=== PATIENT | male | born 1955 | race Caucasian/White ===

== ENCOUNTER → 2017-07-22 | Outpatient (CLI) | payer SELFPAY | LOC: COL.RAD 07:34 | DX: M51.36 Other intervertebral disc degeneration, lumbar region (principal); M41.86 Other forms of scoliosis, lumbar region; I71.4 Abdominal aortic aneurysm, without rupture ==

== ENCOUNTER 2018-02-07 13:09 | Inpatient (IN) | payer OTHER ==
[~2018-02-07] VITALS: Ht 177.8 cm; Wt 84.1 kg
[2018-02-07] MEDS ORDERED: PREDNISONE1 MG (13:14)
[2018-02-07] MEDS ORDERED: ANTIBIOTIC (13:14)
[2018-02-07 13:46] LABS: HEMATOCRIT 39.5 % (42.0-52.0); HEMOGLOBIN 13.4 g/dl (13.5-18.0); MEAN CELL VOLUME 101 fl (80.0-100.0); MEAN CORPUSCULAR HEMOGLOBIN 34 pg (27.0-31.0); MEAN CORPUSCULAR HGB CONC 34 g/dl (33.0-37.0); MEAN PLATELET VOLUME 8.2 fl (7.4-10.4); PLATELET COUNT 323 K/mm3 (130-400); RED BLOOD COUNT 3.92 M/mm3 (4.20-5.60); REDCELL DISTRIBUTION WIDTH-CV 12.9 % (11.5-14.5)
[2018-02-07 13:54] LABS: ALBUMIN 3.5 gm/dL (3.5-5.0); BILIRUBIN,TOTAL 0.3 mg/dL (0.0-1.0); CALCIUM 8.3 mg/dL (8.4-10.2); CREATININE, serum 0.71 mg/dL (0.66-1.25); POTASSIUM 3.3 mmol/L (3.4-5.0); TOTAL PROTEIN 6.7 gm/dL (6.4-8.2)
[2018-02-07 14:01] LABS: BAND 4 % (0-10); EOSINOPHIL 2 % (0-4); LYMPHOCYTE 15 % (20.0-51.0); NEUTROPHILS 77 % (42.0-75.2); PLATELET ESTIMATE NORMAL (NORMAL)
[2018-02-07 16:31] LABS: PROTHROMBIN TIME 11.1 SECONDS (9.7-12.8)
[2018-02-07] MEDS ORDERED: BACTRIM DS 8001 TAB PO (17:34)
[2018-02-07 20:46] VITALS: BP 106/59; PULSE 82; TEMP 98.3
[2018-02-07 21:11] VITALS: BP 106/59; PULSE 82; TEMP 98.3
[2018-02-08] VITALS (9 sets, daily range): BP systolic 90–129; BP diastolic 56–88; PULSE 65–93; TEMP 97.5–98.7
[2018-02-08 06:59] LABS: HEMATOCRIT 37.8 % (42.0-52.0); HEMOGLOBIN 12.9 g/dl (13.5-18.0); MEAN CELL VOLUME 101 fl (80.0-100.0); MEAN CORPUSCULAR HEMOGLOBIN 34 pg (27.0-31.0); MEAN CORPUSCULAR HGB CONC 34 g/dl (33.0-37.0); MEAN PLATELET VOLUME 8.3 fl (7.4-10.4); PLATELET COUNT 321 K/mm3 (130-400); RED BLOOD COUNT 3.76 M/mm3 (4.20-5.60)
[2018-02-08 07:06] LABS: CALCIUM 8.3 mg/dL (8.4-10.2); CREATININE, serum 0.63 mg/dL (0.66-1.25); POTASSIUM 4.1 mmol/L (3.4-5.0)
[2018-02-09 01:50] VITALS: BP 121/76; PULSE 92; TEMP 99
[2018-02-09 05:12] VITALS: BP 118/74; PULSE 93; TEMP 99
[2018-02-09 06:36] LABS: MEAN CELL VOLUME 99 fl (80.0-100.0); MEAN CORPUSCULAR HEMOGLOBIN 34 pg (27.0-31.0); MEAN CORPUSCULAR HGB CONC 35 g/dl (33.0-37.0); MEAN PLATELET VOLUME 8.6 fl (7.4-10.4); PLATELET COUNT 342 K/mm3 (130-400); RED BLOOD COUNT 3.52 M/mm3 (4.20-5.60); REDCELL DISTRIBUTION WIDTH-CV 12.5 % (11.5-14.5)
[2018-02-09 06:47] LABS: HEMATOCRIT 34.8 % (42.0-52.0)
[2018-02-09 06:49] LABS: CALCIUM 8.4 mg/dL (8.4-10.2); CREATININE, serum 0.68 mg/dL (0.66-1.25); POTASSIUM 4.1 mmol/L (3.4-5.0)
[2018-02-09 07:25] VITALS: BP 113/73; PULSE 96; TEMP 98.3
[2018-02-09 10:15] VITALS: BP 100/81; PULSE 86; TEMP 98.6
[2018-02-09 17:22] VITALS: BP 136/80; PULSE 96; TEMP 99.7
[2018-02-09 21:58] VITALS: BP 120/79; PULSE 88; TEMP 98.2
[2018-02-10] VITALS (7 sets, daily range): BP systolic 103–117; BP diastolic 61–92; PULSE 66–90; TEMP 97.7–98.4
[2018-02-10 06:14] LABS: HEMATOCRIT 33.1 % (42.0-52.0); HEMOGLOBIN 11.1 g/dl (13.5-18.0); MEAN CELL VOLUME 102 fl (80.0-100.0); MEAN CORPUSCULAR HEMOGLOBIN 34 pg (27.0-31.0); MEAN CORPUSCULAR HGB CONC 34 g/dl (33.0-37.0); MEAN PLATELET VOLUME 8.5 fl (7.4-10.4); PLATELET COUNT 306 K/mm3 (130-400); RED BLOOD COUNT 3.25 M/mm3 (4.20-5.60); REDCELL DISTRIBUTION WIDTH-CV 12.8 % (11.5-14.5)
[2018-02-10 06:22] LABS: CALCIUM 8.2 mg/dL (8.4-10.2); CREATININE, serum 0.7 mg/dL (0.66-1.25)
[2018-02-11 01:23] VITALS: BP 108/66; PULSE 86; TEMP 99.2
[2018-02-11 05:26] VITALS: BP 107/67; PULSE 74; TEMP 98
[2018-02-11 09:00] LABS: BASO # 0.1 (0.0-0.2); BASO % 0.5 % (0.0-2.0); EOS # 0.6 (0.0-0.7); EOS % 4.6 % (0-4.0); GRAN # 10.1 (1.4-6.5); LYMPH # 1.5 (1.2-3.4); LYMPH % 11.3 % (20.0-51.0); MEAN CELL VOLUME 102 fl (80.0-100.0); MEAN CORPUSCULAR HGB CONC 33 g/dl (33.0-37.0); MEAN PLATELET VOLUME 8.6 fl (7.4-10.4); MONO # 0.8 (0.1-0.6); MONO % 5.7 % (1.7-9.3); PLATELET COUNT 361 K/mm3 (130-400); RED BLOOD COUNT 3.29 M/mm3 (4.20-5.60); REDCELL DISTRIBUTION WIDTH-CV 12.6 % (11.5-14.5)
[2018-02-11 09:05] LABS: CALCIUM 8.5 mg/dL (8.4-10.2); CREATININE, serum 0.69 mg/dL (0.66-1.25)
[2018-02-11 09:11] LABS: HEMATOCRIT 33.4 % (42.0-52.0); HEMOGLOBIN 11.1 g/dl (13.5-18.0); MEAN CORPUSCULAR HEMOGLOBIN 34 pg (27.0-31.0)
[2018-02-11 09:46] VITALS: BP 111/64; PULSE 78; TEMP 97.8
[2018-02-11 10:56] VITALS: BP 104/59; PULSE 83; TEMP 98
[2018-02-11 19:00] VITALS: BP 111/78; PULSE 91; TEMP 98.4
[2018-02-11 21:37] VITALS: BP 113/55; PULSE 89; TEMP 98.6
[2018-02-12 01:46] VITALS: BP 103/64; PULSE 73; TEMP 98.3
[2018-02-12 05:35] VITALS: BP 129/78; PULSE 95; TEMP 98.1
[2018-02-12 06:11] LABS: MEAN CELL VOLUME 99 fl (80.0-100.0); MEAN CORPUSCULAR HGB CONC 34 g/dl (33.0-37.0); PLATELET COUNT 339 K/mm3 (130-400); RED BLOOD COUNT 3.11 M/mm3 (4.20-5.60); REDCELL DISTRIBUTION WIDTH-CV 12.7 % (11.5-14.5)
[2018-02-12 06:15] LABS: HEMATOCRIT 30.7 % (42.0-52.0); HEMOGLOBIN 10.5 g/dl (13.5-18.0); MEAN CORPUSCULAR HEMOGLOBIN 34 pg (27.0-31.0)
[2018-02-12 06:28] LABS: CALCIUM 8.5 mg/dL (8.4-10.2); CREATININE, serum 0.64 mg/dL (0.66-1.25); MAGNESIUM 1.9 mg/dL (1.6-2.3); POTASSIUM 3.8 mmol/L (3.4-5.0)
[2018-02-12 07:12] LABS: BAND 7 % (0-10); EOSINOPHIL 5 % (0-4); LYMPHOCYTE 15 % (20.0-51.0); NEUTROPHILS 71 % (42.0-75.2); PLATELET ESTIMATE NORMAL (NORMAL)
[2018-02-12] MEDS ORDERED: CEPHALEXIN500 M1 PO (08:52)
[2018-02-12] MEDS ORDERED: ASPI325T6 PO (08:53)
[2018-02-12] MEDS ORDERED: VTAMINC250TA PO (09:02)
[2018-02-12] MEDS ORDERED: OYSCO 500500 M1 PO (09:02)
[2018-02-12] MEDS ORDERED: MULTI VITAMINS1 TAB PO (09:03)
[2018-02-12 09:31] VITALS: BP 118/71; PULSE 94; TEMP 97.4
[2018-02-12] MEDS ORDERED: PERCOCET 325 MG1 TA2 PO (11:01)
== END 2018-02-12 11:55 | disposition home or self-care (01) | DRG 481 ==
LOC: COL.ER 13:09 → SURG 14:46
PROVIDERS: Emergency Medicine; Internal Medicine; Nurse Practitioner Family; Orthopaedic Surgery Sports Medicine
PROC: 0QS606Z Reposition Right Upper Femur with Intramedullary Internal Fixation Device, Open Approach (ICD-10-PCS; principal; 2018-02-08 13:30)
DX: S72.141A Displaced intertrochanteric fracture of right femur, initial encounter for closed fracture (principal); L03.115 Cellulitis of right lower limb; I71.4 Abdominal aortic aneurysm, without rupture; B95.61 Methicillin susceptible Staphylococcus aureus infection as the cause of diseases classified elsewhere; F17.210 Nicotine dependence, cigarettes, uncomplicated; F10.10 Alcohol abuse, uncomplicated; E87.6 Hypokalemia; T63.331D Toxic effect of venom of brown recluse spider, accidental (unintentional), subsequent encounter; W20.8XXA Other cause of strike by thrown, projected or falling object, initial encounter; Y93.H2 Activity, gardening and landscaping
CPT/HCPCS: 99223-AI; 99232-AI; 99233-AI; 99239; A9284; C1713; J0360; J0690; J0696; J1650; J2250; J2270; J2704; J2765; J2795; J3010; J3370; J7030; J7050; J7120

== ENCOUNTER 2018-04-23 10:15 | Outpatient (RCR) | payer OTHER ==
[~2018-04-23 10:15] MED LIST: ANTIBIOTIC; ASPI325T6 PO; BACTRIM DS 8001 TAB PO; CEPHALEXIN500 M1 PO; MULTI VITAMINS1 TAB PO; OYSCO 500500 M1 PO; PERCOCET 325 MG1 TA2 PO; PREDNISONE1 MG; VTAMINC250TA PO
== END 2018-05-18 | disposition home or self-care (01) ==
LOC: WSPT
DX: S72.091D Other fracture of head and neck of right femur, subsequent encounter for closed fracture with routine healing (principal); W01.0XXD Fall on same level from slipping, tripping and stumbling without subsequent striking against object, subsequent encounter; Y93.H2 Activity, gardening and landscaping

== ENCOUNTER 2019-03-10 23:51 | Inpatient (IN) | payer OTHER ==
[~2019-03-10] VITALS: Ht 177.8 cm; Wt 94.7 kg
[2019-03-11] VITALS (884 sets, daily range): BP systolic 93–134; BP diastolic 74–92; PULSE 98–112; TEMP 98–98.9; O2SAT 68–100
[2019-03-11 00:30] LABS: HEMATOCRIT 43.5 % (42.0-52.0); HEMOGLOBIN 14.7 g/dl (13.5-18.0); MEAN CELL VOLUME 97 fl (80.0-100.0); MEAN CORPUSCULAR HEMOGLOBIN 33 pg (27.0-31.0); MEAN CORPUSCULAR HGB CONC 34 g/dl (33.0-37.0); MEAN PLATELET VOLUME 8.7 fl (7.4-10.4); PLATELET COUNT 358 K/mm3 (130-400); REDCELL DISTRIBUTION WIDTH-CV 13.7 % (11.5-14.5)
[2019-03-11 00:46] LABS: PROTHROMBIN TIME 11.7 SECONDS (9.7-12.8)
[2019-03-11 00:49] LABS: ALANINE AMINOTRANSFERASE 21 U/L (21-72); ALBUMIN 3.8 gm/dL (3.5-5.0); ALKALINE PHOSPHATASE 106 U/L (50-136); ANION GAP 5 mmol/L (7-16); AST,SGOT 29 U/L (15-37); BILIRUBIN,TOTAL 0.8 mg/dL (0.0-1.0); BLOOD UREA NITROGEN 13 mg/dL (9-20); CALCIUM 9.3 mg/dL (8.4-10.2); CARBON DIOXIDE 22 mmol/L (22-30); CHLORIDE 105 mmol/L (98-107); CREATININE, serum 0.67 (0.66-1.25); GLUCOSE 140 mg/dL (74-106); LIPASE 51 U/L (23-300); PARTIAL THROMBOPLASTIN TIME 31.7 SECONDS (26.0-37.0); POTASSIUM 4.4 mmol/L (3.4-5.0); SODIUM 133 mmol/L (137-145); TOTAL PROTEIN 7.5 gm/dL (6.4-8.2)
[2019-03-11 00:51] LABS: ALCOHOL(ethanol),MEDICAL < 10 mg/dL
[2019-03-11 01:32] LABS: BAND 26 % (0-10); LYMPHOCYTE 2 % (20.0-51.0); METAMYELOCYTE 1 % (0-0); NEUTROPHILS 68 % (42.0-75.2); PLATELET ESTIMATE NORMAL (NORMAL)
[2019-03-11 02:26] LABS: COLLECTION METHOD CLEAN CATCH
[2019-03-11 02:48] LABS: MUCOUS Present /lpf; PH 6 (5-8); SQUAMOUS EPITHELIAL None Seen /hpf; URINE APPEARANCE Clear; URINE BACTERIA None Seen /hpf; URINE BILIRUBIN Negative (NEGATIVE); URINE BLOOD 2+ (NEGATIVE); URINE COLOR Yellow; URINE GLUCOSE Negative (NEGATIVE); URINE KETONE Trace (NEGATIVE); URINE LEUKOCYTE ESTERASE Negative (NEGATIVE); URINE NITRATE Negative (NEGATIVE); URINE PROTEIN(semi-quant) Negative (NEGATIVE); URINE UROBILINOGEN Negative (NEGATIVE)
[2019-03-11] MEDS ORDERED: PROVENTIL0.09 MG/A1 IH (03:12)
--- NOTE | 2019-03-11 03:15 | NUR ---
Admitted to room 7 in ICU-- medical bed,, VSS, denies pain to right shoulder/under arm at this time-- area red/warm,, Up at side of bed to void, uses cane to ambulate- on Tele,, has IV site to left hand,,NS at 200cc/hr per orders--on Zosyn/Vancomycin
--- NOTE | 2019-03-11 04:30 | NUR ---
Medicated with Dilaudid IV at this time per orders- Luann ROSAS was in to see pt and did move thr right arm and marked the red area- pt then was having pain-- denies pain when not moving right arm
[2019-03-11 05:23] LABS: HEMATOCRIT 42.2 % (42.0-52.0); HEMOGLOBIN 14.2 g/dl (13.5-18.0); MEAN CELL VOLUME 97 fl (80.0-100.0); MEAN CORPUSCULAR HEMOGLOBIN 33 pg (27.0-31.0); MEAN CORPUSCULAR HGB CONC 34 g/dl (33.0-37.0); MEAN PLATELET VOLUME 8.6 fl (7.4-10.4); PLATELET COUNT 297 K/mm3 (130-400); RED BLOOD COUNT 4.34 M/mm3 (4.20-5.60); REDCELL DISTRIBUTION WIDTH-CV 13.6 % (11.5-14.5)
[2019-03-11 05:33] LABS: CALCIUM 8.7 mg/dL (8.4-10.2); CREATININE, serum 0.63 (0.66-1.25); POTASSIUM 4.3 mmol/L (3.4-5.0)
[2019-03-11 05:58] LABS: BAND 24 % (0-10); LYMPHOCYTE 1 % (20.0-51.0); NEUTROPHILS 72 % (42.0-75.2); PLATELET ESTIMATE NORMAL (NORMAL)
--- NOTE | 2019-03-11 06:45 | NUR ---
REPORT RECEIVED FROM CAROLINE HERRMANN. CARE ASSUMED.
--- NOTE | 2019-03-11 09:36 | NUR ---
PT'S IV TO LEFT HAND HAS BECOME PAINFUL AND STARTING TO BECOME EDEMATOUS. IVF STOPPED. PT HAVING US OF CELLULITIS AREA TO RIGHT AXILLA. AWAITING FOR US TECH TO BE FINISHED TO ATTEMPT TO INITIATE NEW IV ACCESS.
--- NOTE | 2019-03-11 09:45 | NUR ---
PT O2 SAT DROPPING TO 88-90% WHILE RESTING. 2L O2 VIA NC APPLIED TO PT. O2 SAT NOW 96-97%
--- NOTE | 2019-03-11 10:10 | NUR ---
20G IV INSERTED TO LEFT AC. IF TO LEFT HAND REMOVED.
--- NOTE | 2019-03-11 10:18 | NUR ---
REPORT CALLED TO RAYMOND HERRMANN ON MEDICAL FLOOR.
--- NOTE | 2019-03-11 10:37 | NUR ---
TRANSFER CANCELLED D/T PT'S ELEVATED HEART RATE OF 125-130BPM. RAYMOND HERRMANN NOTIFIED.
--- NOTE | 2019-03-11 15:30 | NUR ---
Report received from MONTEZ Ceja. Pt resting in bed, easily arousable. States pain is gone after IV pain medication. Call light in reach.
--- NOTE | 2019-03-11 15:30 | NUR ---
REPORT GIVEN TO JOEY HERRMANN. CARE TRANSFERRED.
--- NOTE | 2019-03-11 19:15 | NUR ---
bedside report given to Shmuel Peace.
--- NOTE | 2019-03-11 19:50 | NUR ---
Assessment complete; area of cellulitis assessed. Area is reddened and hot to touch. Original area of redness has been marked with a marker and has been added to where it has progressed. A lightly reddend area was noted during shift change that extends down the right side and towards the right abdomen. This was marked with a marker. Redness also extends slighly behind the right arm and axillary region. Patient reports no pain when area is not touched but with any movement pain is rated as a 3/10. Will continue to monitor.
--- NOTE | 2019-03-11 21:30 | NUR ---
Pt called to use the bathroom. Assisted with removing extra cords and present for stand by assist only.
[2019-03-12] VITALS (441 sets, daily range): BP systolic 90–134; BP diastolic 56–80; PULSE 85–108; TEMP 97.2–98.4; O2SAT 68–100
[2019-03-12 05:17] LABS: HEMATOCRIT 37.2 % (42.0-52.0); HEMOGLOBIN 12.5 g/dl (13.5-18.0); MEAN CELL VOLUME 99 fl (80.0-100.0); MEAN CORPUSCULAR HEMOGLOBIN 33 pg (27.0-31.0); MEAN CORPUSCULAR HGB CONC 34 g/dl (33.0-37.0); PLATELET COUNT 265 K/mm3 (130-400); RED BLOOD COUNT 3.77 M/mm3 (4.20-5.60); REDCELL DISTRIBUTION WIDTH-CV 14.1 % (11.5-14.5)
[2019-03-12 05:26] LABS: CALCIUM 8.4 mg/dL (8.4-10.2); CREATININE, serum 1.08 (0.66-1.25); POTASSIUM 4.1 mmol/L (3.4-5.0)
[2019-03-12 05:57] LABS: BAND 29 % (0-10); LYMPHOCYTE 4 % (20.0-51.0); NEUTROPHILS 62 % (42.0-75.2)
[2019-03-12 05:58] LABS: PLATELET ESTIMATE NORMAL (NORMAL)
--- NOTE | 2019-03-12 07:10 | NUR ---
Bedside report given to MONTEZ Hernandez. Patient care transfered.
--- NOTE | 2019-03-12 08:39 | NUR ---
Report received from Nata HERRMANN and care resumed.
--- NOTE | 2019-03-12 09:15 | NUR ---
Dr Ramirez in to see pt. Will plan to transfer to floor.
--- NOTE | 2019-03-12 10:45 | NUR ---
Pt stated having pain in right side/arm rated 4/10. PRN pain pill given. Pt up to bathroom and offered to freshen up/ sit in chair. Pt declined at this time. Will continue to follow.
--- NOTE | 2019-03-12 11:24 | NUR ---
SW met with patient in room. Patient plans to return home with his Jessica . Patient reports that his or son will transport him home because he is not supposed to drive. Patient report that he resides in [facility]. Patient reports that he uses a cane daily and a walker around the house. Patient denies using any other dme and no 02. Patient indicated that he is disable and just started receiving SSI. Patient reports that he does not have a PCP but uses [facility] in [place] of continuity of care. Patient reports that he obtains his medications from [facility] at the [facility]. SW made referral to [facility] in Finances for disability insurance. No additonal needs identified.
--- NOTE | 2019-03-12 15:15 | NUR ---
Patient up to room from ICU. Assessment complete. Lung sounds clear, heart sounds normal. Bowel sounds present. Pulses strong bilaterally. No edema present. Patient states pain is about 3/10 at the moment. Right arm is reddened up to axilla and part of right side chest. Per patient "I couldn't raise my arm at all when this all started. Now i can raise it a little without much pain". Patient on room air, independent. Denies other needs at this time. PICC in [facility] is CDI. NS @ 100. Call light within reach.
--- NOTE | 2019-03-12 15:16 | NUR ---
Report called to Dalia HERRMANN on medical floor. Pt taken by wheelchair with tele to room 356.
--- NOTE | 2019-03-12 18:21 | NUR ---
patient sitting in bed watching tv. Denies pain at the moment. Vanc running. No other needs at this time. Call light within reach.
--- NOTE | 2019-03-12 20:10 | NUR ---
Shift assessment complete. Pt resting in bed, awake, a&o, cooperative c cares. Pt reports continued c/o pain to R side/flank, RUE, rated "6/10", provided c PRN pain med per pt req. Large area erythema/warmth noted to R side/flank/arm, several dated outlines noted et area appears to be receeding. Denies any other c/o. PICC noted to LUE, patent c good blood return. Pt denies further needs. Call light in reach, will monitor.
[2019-03-13] VITALS (7 sets, daily range): BP systolic 100–135; BP diastolic 61–82; PULSE 81–88; TEMP 97.4–98.8
[2019-03-13 04:50] LABS: HEMOGLOBIN 11.8 g/dl (13.5-18.0); MEAN CELL VOLUME 98 fl (80.0-100.0); MEAN CORPUSCULAR HEMOGLOBIN 32 pg (27.0-31.0); MEAN CORPUSCULAR HGB CONC 33 g/dl (33.0-37.0); MEAN PLATELET VOLUME 8.9 fl (7.4-10.4); PLATELET COUNT 280 K/mm3 (130-400); RED BLOOD COUNT 3.64 M/mm3 (4.20-5.60); REDCELL DISTRIBUTION WIDTH-CV 13.9 % (11.5-14.5)
[2019-03-13 04:52] LABS: HEMATOCRIT 35.8 % (42.0-52.0)
[2019-03-13 05:03] LABS: CALCIUM 8.7 mg/dL (8.4-10.2); CREATININE, serum 1.19 (0.66-1.25); MAGNESIUM 2.4 mg/dL (1.6-2.3); POTASSIUM 3.9 mmol/L (3.4-5.0)
--- NOTE | 2019-03-13 06:05 | NUR ---
Pt resting in bed, condition unchanged. Pt has rested well this shift c few needs. Pain well controlled c PRN pain meds. Pt denies needs. Call light in reach.
[2019-03-13 06:15] LABS: BAND 11 % (0-10); LYMPHOCYTE 2 % (20.0-51.0); NEUTROPHILS 86 % (42.0-75.2); PLATELET ESTIMATE NORMAL (NORMAL)
--- NOTE | 2019-03-13 09:00 | NUR ---
Patient sitting in chair. Shift assessment complete and charted. Per patient, "feeling much better than a couple of days ago". Lung sounds clear throughout, heart sounds normal. No edema noted. Denies dizziness, SOB, chest pain, N/V. Redness and swelling of right underarm and right side/abdomen has decreased. Patient feels swelling and redness has increased in armpit and right chest. Hard lump on right armpit, warm to touch. PICC in [facility] is patent with blood return and no complications. No other needs at this time. Call light within reach.
--- NOTE | 2019-03-13 17:03 | NUR ---
patient sitting in chair. Ordered dinner, no new complaints. States pain is better. Able to raise right arm higher than before. Denies other needs.
--- NOTE | 2019-03-13 19:13 | NUR ---
Report given to MONTEZ Moreno. Uneventful day, cooperative with cares. No complaints and denies other needs at this time.
--- NOTE | 2019-03-13 19:34 | NUR ---
Shift assessment complete. Pt resting in bed, awake, a&o, cooperative c cares. Pt reports continued c/o pain to R side, rated "2/10" at this time. Denies any other c/o. PICC patent, good blood return. Pt denies needs. Call light in reach. Will monitor.
[2019-03-14 00:14] VITALS: BP 109/63; PULSE 88; TEMP 97.3
[2019-03-14 04:18] VITALS: BP 130/80; PULSE 79; TEMP 97.3
[2019-03-14 08:28] LABS: BASO % 0.1 % (0.0-2.0); EOS % 0.1 % (0-4.0); GRAN # 17.1 (1.4-6.5); HEMOGLOBIN 11.4 g/dl (13.5-18.0); LYMPH # 0.7 (1.2-3.4); LYMPH % 3.6 % (20.0-51.0); MEAN CELL VOLUME 98 fl (80.0-100.0); MEAN CORPUSCULAR HEMOGLOBIN 33 pg (27.0-31.0); MEAN CORPUSCULAR HGB CONC 34 g/dl (33.0-37.0); MEAN PLATELET VOLUME 8.7 fl (7.4-10.4); MONO # 0.7 (0.1-0.6); MONO % 3.8 % (1.7-9.3); PLATELET COUNT 299 K/mm3 (130-400); RED BLOOD COUNT 3.44 M/mm3 (4.20-5.60); REDCELL DISTRIBUTION WIDTH-CV 14.2 % (11.5-14.5)
[2019-03-14 08:31] LABS: HEMATOCRIT 33.6 % (42.0-52.0)
[2019-03-14 08:38] LABS: CALCIUM 8.8 mg/dL (8.4-10.2); CREATININE, serum 1.03 (0.66-1.25); POTASSIUM 3.3 mmol/L (3.4-5.0)
[2019-03-14 08:53] VITALS: BP 101/83; PULSE 98; TEMP 97.9
--- NOTE | 2019-03-14 09:15 | NUR ---
patient sitting in chair upon entry. patient states he isn't in much pain, able to lift right arm. Redness and swelling seems to have increased in right axilla. Right axilla has lump that is harder and increased in size. Warm to touch. Denies any other pain, SOB, chest pain, dizziness, palpitations, N/V. Patient independent and cooperative with cares. No other needs at this time. Call light within reach.
[2019-03-14 12:48] VITALS: BP 132/89; PULSE 78; TEMP 97.3
--- NOTE | 2019-03-14 13:41 | NUR ---
patient sitting in chair. no new complaints. surgical consult with Dr. Peacock in, no other needs at this time.
[2019-03-14 16:02] VITALS: BP 143/93; PULSE 90; TEMP 97.6
--- NOTE | 2019-03-14 16:26 | NUR ---
Patient resting in bed, Vanc started. Was going to administer Lovenox shot and noticed abdomen is reddened. Yesterday abdomen was not red. Abdomen is not very warm. Per patient "he noticed it briefly this morning, it is NOT itchy or bothersome". Holding off on the lovenox shot until this nurse gets ahold of the doctor or MONTEZ Rothman.
--- NOTE | 2019-03-14 17:45 | NUR ---
Talked with Dr. Castellano, discussed erythema of abdomen and new site. Patient denies noticing it this morning, denies itchiness. No fevers. Lovenox on hold, SCDs ordered. Patient ambulates often. Erythema marked on abdomen to monitor.
--- NOTE | 2019-03-14 18:59 | NUR ---
Report given to MONTEZ Lemos.
[2019-03-14 19:10] VITALS: BP 139/78; PULSE 90; TEMP 98.1
--- NOTE | 2019-03-14 19:14 | NUR ---
Sitting at bedside. Assessment complete. Lungs clear. Heart sounds normal. Bowels active x4. Pulses present throughout. Bilateral lower leg edema +2 present. Right axilla nodule with erythema extending to right arm, right trunk and lower ABD. PICC to right upper flushes without complications. Hydrocortisone cream applied as ordered. Rates pain 2/10 at this time. Denies other needs. Call light in reach. Will monitor.
--- NOTE | 2019-03-14 20:32 | NUR ---
Rating pain 4/10 Provided with PRN loraine
--- NOTE | 2019-03-14 23:55 | NUR ---
Resting in bed. Denies needs. Denies pain. Call light in reach.
[2019-03-15] VITALS (12 sets, daily range): BP systolic 105–149; BP diastolic 63–88; PULSE 77–106; TEMP 97.5–98.3
--- NOTE | 2019-03-15 02:18 | NUR ---
In restroom. Denies needs. Call light in reach.
--- NOTE | 2019-03-15 04:30 | NUR ---
Resting in bed. Rating pain 5/10 in right shoulder. Provided with PRN norco. Denies other needs at this time. Call light in reach.
--- NOTE | 2019-03-15 05:49 | NUR ---
Uneventful night. Required pain control for right axilla pain throughout night. Resting in bed this AM. Denies needs. Call light in reach.
[2019-03-15 06:28] LABS: HEMOGLOBIN 12.2 g/dl (13.5-18.0); MEAN CELL VOLUME 98 fl (80.0-100.0); MEAN CORPUSCULAR HEMOGLOBIN 33 pg (27.0-31.0); MEAN CORPUSCULAR HGB CONC 33 g/dl (33.0-37.0); PLATELET COUNT 312 K/mm3 (130-400); RED BLOOD COUNT 3.75 M/mm3 (4.20-5.60); REDCELL DISTRIBUTION WIDTH-CV 14.6 % (11.5-14.5)
[2019-03-15 06:32] LABS: HEMATOCRIT 36.9 % (42.0-52.0)
--- NOTE | 2019-03-15 06:34 | NUR ---
Report given to MONTEZ Sarabia
[2019-03-15 06:44] LABS: C-REACTIVE PROTEIN 7.3 mg/dL (0.0-0.9); CALCIUM 8.8 mg/dL (8.4-10.2); CREATININE, serum 1.14 (0.66-1.25); MAGNESIUM 1.9 mg/dL (1.6-2.3); POTASSIUM 3.7 mmol/L (3.4-5.0)
[2019-03-15 07:25] LABS: BAND 1 % (0-10); EOSINOPHIL 1 % (0-4); LYMPHOCYTE 6 % (20.0-51.0); NEUTROPHILS 89 % (42.0-75.2); PLATELET ESTIMATE NORMAL (NORMAL)
--- NOTE | 2019-03-15 08:55 | NUR ---
Pt sitting on side of bed, complaining of pain 5/10. Pain medication administered. Completed morning assessment. Breathing even and unlabored, denies shortness of breath. Redness on abdomen unchanged from previous marking. Will continue to monitor. Call light in reach.
--- NOTE | 2019-03-15 09:35 | NUR ---
PICC intact left upper arm. With sterile technique left upper arm PICC dressing change done with insertion site cleansed with ChloraPrep 1, chlorhexidine impregnated disc applied, skin prep, StatLock, and Tegaderm applied. Signs or symptoms of IV complications noted. No concerns voiced. Arm wrapped with Tony to protect catheter.
--- NOTE | 2019-03-15 10:02 | NUR ---
Initial visit; Patient thanked Gymnastics Coach Or Instructor for looking in on him and offering God's blessings.
--- NOTE | 2019-03-15 13:22 | NUR ---
Pt off floor for Incision and Drainage of right axillary.
--- NOTE | 2019-03-15 18:30 | NUR ---
Changed dressing to right axillary. Dressing saturated with red drainage.
--- NOTE | 2019-03-15 18:50 | NUR ---
Gave report to Aminta HERRMANN. Pt in room, vitals stable. Denies any needs.
--- NOTE | 2019-03-15 19:43 | NUR ---
Resting in bed. Assessment complete. Left lower lobe crackles. Left upper lobe and right lung clear. Heart sounds normal. Bowels active x4. Pulses present throughout. Bilateral lower leg edema +2 present. Denies pain at this time. Incision to right axilla present with iodoform packing and 4x4 gauze with tape present. Dressing saturated with reddish/yellow drainage. Changed at this time. Reapplied with gauze and tegaderm. Denies needs at this time. Call light in reach. Will monitor.
--- NOTE | 2019-03-15 23:21 | NUR ---
Resting in bed. Denies pain at this time. Right axilla dressing saturated. Changed at this time. Reddish/yellow drainage. Denies other needs. Call light in reach.
--- NOTE | 2019-03-16 02:08 | NUR ---
Resting in bed. Denies needs. Call light in reach.
[2019-03-16 03:09] VITALS: BP 122/76; BP 96/51; PULSE 80; TEMP 98.5
--- NOTE | 2019-03-16 03:11 | NUR ---
PATIENT REQUEST TO SLEEP TONGIHT, HAS NO SIGNS OF DISTRESS AND IS ON RA.
--- NOTE | 2019-03-16 05:56 | NUR ---
Patient had eventful night. Denies any pain throughout night. States "I am feeling much better." Denies needs this AM. Call light in reach.
--- NOTE | 2019-03-16 07:37 | NUR ---
Report given to MONTEZ Sarabia
[2019-03-16 07:54] VITALS: BP 136/82; PULSE 91; TEMP 98
--- NOTE | 2019-03-16 08:15 | NUR ---
Pt sitting on side of bed. C/O of pain 5/10 to right axillary area. Dressing saturated with red serosanguinous drainage. Breathing even and unlabored. Denies any shortness of breath. +2 pitting edema to lower legs, redness to right arm has subsided. Abdomen is still red with some improvement from yesterday. Completed morning assessment. Gave pain meds for dressing change will return for dressing change. Call light in reach.
[2019-03-16 08:39] LABS: HEMOGLOBIN 11.6 g/dl (13.5-18.0); MEAN CELL VOLUME 99 fl (80.0-100.0); MEAN CORPUSCULAR HEMOGLOBIN 33 pg (27.0-31.0); MEAN CORPUSCULAR HGB CONC 33 g/dl (33.0-37.0); MEAN PLATELET VOLUME 8.7 fl (7.4-10.4); PLATELET COUNT 287 K/mm3 (130-400); RED BLOOD COUNT 3.56 M/mm3 (4.20-5.60); REDCELL DISTRIBUTION WIDTH-CV 14.6 % (11.5-14.5)
[2019-03-16 08:40] LABS: HEMATOCRIT 35.3 % (42.0-52.0)
[2019-03-16 08:54] LABS: CALCIUM 8.7 mg/dL (8.4-10.2); CREATININE, serum 1.34 (0.66-1.25); POTASSIUM 3.4 mmol/L (3.4-5.0)
[2019-03-16 09:02] LABS: LYMPHOCYTE 13 % (20.0-51.0); NEUTROPHILS 84 % (42.0-75.2); PLATELET ESTIMATE NORMAL (NORMAL)
--- NOTE | 2019-03-16 10:00 | NUR ---
Completed dressing chaneg. Removed iodoform packing and replaced with new iodoform. Placed 4x4 quaze and covered with tegaderm. Pt tolerated well with minimum complaints of pain. Call light in reach.
[2019-03-16 11:15] VITALS: BP 106/65; PULSE 76; TEMP 98
--- NOTE | 2019-03-16 13:53 | NUR ---
JEANETH student met with the patient to review discharge plan. The patient still plans to return home with his . Randal, financial data analyst, met with the patient and completed a Medicaid application and financial assistance application. JEANETH to continue to follow.
[2019-03-16 15:18] VITALS: BP 116/73; PULSE 91; TEMP 98
--- NOTE | 2019-03-16 18:19 | NUR ---
Pt in room. Breathing even and unlabored. Denies any pain. Redness noted on abdomen. Moderate amount of drainage to dressing on right axillary. Denies any needs at this time.
--- NOTE | 2019-03-16 18:53 | NUR ---
Hand off report given to Urvashi HERRMANN. Pt lying in bed, denies any needs.
--- NOTE | 2019-03-16 20:14 | NUR ---
Patient assessed at this time. Denies having pain and discomfort. LS CTA. Respirations even and unlabored. HRR. BSAx4. Pedal and radial pulses present and equal bilareally. 2+ edema BLE. Dressing to right axilla is CDI at this time. Reports tenderness around site. Redness continues to abdomen. Double lumen PICC to LUE, each flushed without difficutly. Denies pain and discomfort to site. Dressing to area and AMMY wrap intact. Voices no needs or concerns at this time. Call light is within reach.
[2019-03-16 20:16] VITALS: BP 122/75; PULSE 83; TEMP 98.9
[2019-03-17] VITALS (7 sets, daily range): BP systolic 116–132; BP diastolic 65–82; PULSE 71–85; TEMP 97.2–98.8
--- NOTE | 2019-03-17 02:35 | NUR ---
PATIENT REQUEST TO SLEEP TONIGHT , HAS NO SIGN OD DISTRESS AND ON RA.
--- NOTE | 2019-03-17 02:47 | NUR ---
Resting in bed with eyes closed at this time. Has had no complaints of pain or discomfort so far this shift. Call light is within reach.
--- NOTE | 2019-03-17 03:23 | NUR ---
Patient woke up and was having pain to right axilla. Stated this is the first night he's been able to sleep on his right side, and he did, but when he woke up he was having pain to axilla. Requested and given Parsons per PRN order. Vancomycin started per orders to PICC in E. Voices no other needs or concerns at this time. Call light is within reach.
--- NOTE | 2019-03-17 05:21 | NUR ---
Dressing changed to right axilla at this time. Old dressing had yellow/pink tinged drainage. When idoform was removed, yellow drainage present. Area cleansed with normal saline, and pat dried. Lightly packed wound wtih idoform, covered with gauze, and tegaderm placed over gauze. Patient tolerated well. Area surrounding I&D site is hard and red, and slightly warm to touch. Denies pain and discomfort to area. Given PRN [place] earlier as requested. Voices no other needs or concerns at this time. Call light is within reach.
[2019-03-17 05:57] LABS: HEMOGLOBIN 10.9 g/dl (13.5-18.0); MEAN CELL VOLUME 100 fl (80.0-100.0); MEAN CORPUSCULAR HEMOGLOBIN 32 pg (27.0-31.0); MEAN CORPUSCULAR HGB CONC 32 g/dl (33.0-37.0); MEAN PLATELET VOLUME 8.8 fl (7.4-10.4); PLATELET COUNT 347 K/mm3 (130-400); RED BLOOD COUNT 3.38 M/mm3 (4.20-5.60); REDCELL DISTRIBUTION WIDTH-CV 14.6 % (11.5-14.5)
[2019-03-17 05:59] LABS: HEMATOCRIT 33.8 % (42.0-52.0)
[2019-03-17 06:07] LABS: CALCIUM 8.3 mg/dL (8.4-10.2); CREATININE, serum 1.26 (0.66-1.25); POTASSIUM 3.8 mmol/L (3.4-5.0)
--- NOTE | 2019-03-17 06:19 | NUR ---
Patient up walking with cane in hallway. Got coffee and reading newspaper in room. Denies having pain and discomfort. Denies having any questions or concerns at this time. Call light is within reach.
[2019-03-17 06:29] LABS: EOSINOPHIL 2 % (0-4); LYMPHOCYTE 8 % (20.0-51.0); METAMYELOCYTE 1 % (0-0); NEUTROPHILS 84 % (42.0-75.2); PLATELET ESTIMATE NORMAL (NORMAL)
--- NOTE | 2019-03-17 08:15 | NUR ---
Pt lying in bed c/o of increased edema to lower legs and feet. Placed SCDS on pt and raised feet. Denies any pain. Breating even and unlabored. Denies shortness of breath. Completed morning assessment. +2 pitting edema to bilateral legs and feet. Increased from yesterday. Dressing to right axillary has moderate amount of yellow/clear drainage. Abdomen has some slight redness noted. Denies any needs at this time. Call light in reach.
--- NOTE | 2019-03-17 17:50 | NUR ---
Pt sitting in chair. Denies any pain. Bilateral lower extremity swelling has decreased. Light redness noted on abdomen. Dressing is clean dry and intact to right axillary. Call light in reach.
--- NOTE | 2019-03-17 20:11 | NUR ---
Pt in bed resting and watching TV, no C/O pain currently, shift assessments complete, left Pt call light in reach, bed in lowest position.
--- NOTE | 2019-03-18 02:32 | NUR ---
PATIENT REQUEST TO SLEEP TONIGHT. PTIS ON RA AND NO SIGN OF DISTRESS.
[2019-03-18 04:23] VITALS: BP 133/74; PULSE 79; TEMP 97.3
--- NOTE | 2019-03-18 05:29 | NUR ---
Pt slept during the night, no C/O pain, Pt up early desires to shower, VS have remained stable during the night.
[2019-03-18 06:01] LABS: HEMOGLOBIN 10.9 g/dl (13.5-18.0); MEAN CELL VOLUME 98 fl (80.0-100.0); MEAN CORPUSCULAR HEMOGLOBIN 32 pg (27.0-31.0); MEAN CORPUSCULAR HGB CONC 33 g/dl (33.0-37.0); MEAN PLATELET VOLUME 8.7 fl (7.4-10.4); PLATELET COUNT 335 K/mm3 (130-400); RED BLOOD COUNT 3.38 M/mm3 (4.20-5.60); REDCELL DISTRIBUTION WIDTH-CV 14.4 % (11.5-14.5)
[2019-03-18 06:19] LABS: CALCIUM 8.4 mg/dL (8.4-10.2); CREATININE, serum 1.14 (0.66-1.25); POTASSIUM 3.6 mmol/L (3.4-5.0)
[2019-03-18 06:56] LABS: LYMPHOCYTE 12 % (20.0-51.0); NEUTROPHILS 83 % (42.0-75.2); PLATELET ESTIMATE NORMAL (NORMAL)
[2019-03-18 07:52] VITALS: BP 132/91; PULSE 84; TEMP 98.2
[2019-03-18] MEDS ORDERED: CEPHALEXIN500 M1 PO (08:10)
[2019-03-18] MEDS ORDERED: NORCO 325 MG-51 TAB PO (08:12)
[2019-03-18] MEDS ORDERED: LOPRESSOR 225 MG/TAB PO (09:56)
--- NOTE | 2019-03-18 10:46 | NUR ---
Pt sitting in chair. Denies pain. Bilateral lower extremity +2 pitting edema. Denies shortness of breath. Breathing even and unlabored. Dressing to right axillary has yellow drainage on dressing. Completed morning assessment. Will continue to monitor.
--- NOTE | 2019-03-18 10:51 | NUR ---
Follow-up visit; Patient thanked Copy Camera Operator for looking in on him and offering God's blessings again today. Patient states he is doing much better and hopes to be discharged soon.
--- NOTE | 2019-03-18 12:10 | NUR ---
Pt received discharge instructions, all questions asked and answered. Dressing change supplies given to pt with instructions. PICC removed earlier by Jag HERRMANN. Instructions given to pt. Pt has all belongings.
--- NOTE | 2019-03-18 12:31 | NUR ---
Pt taken out via wheelchair by [facility] staff
--- NOTE | 2019-03-18 13:20 | NUR ---
SW attended clinical rounds. The patient is to discharge back home today, 03/18. No additional needs at this time.
== END 2019-03-18 12:32 | disposition home or self-care (01) | DRG 872 ==
LOC: COL.ER 23:51 → ICU 03-11 02:12 → MEDICAL 03-11 02:12 → ICU 03-11 10:50 → MEDICAL 03-12 15:05
PROVIDERS: Emergency Medicine; Nurse Practitioner Family; Physician Assistant; Surgery; ADMIT Internal Medicine
PROC: 02HV33Z Insertion of Infusion Device into Superior Vena Cava, Percutaneous Approach (ICD-10-PCS; 2019-03-11)
PROC: 0X940ZZ Drainage of Right Axilla, Open Approach (ICD-10-PCS; principal; 2019-03-15 13:00)
DX: A41.9 Sepsis, unspecified organism (principal); L03.313 Cellulitis of chest wall; L03.111 Cellulitis of right axilla; L03.113 Cellulitis of right upper limb; J44.9 Chronic obstructive pulmonary disease, unspecified; N28.9 Disorder of kidney and ureter, unspecified; E87.6 Hypokalemia; J62.8 Pneumoconiosis due to other dust containing silica; M19.90 Unspecified osteoarthritis, unspecified site; R22.9 Localized swelling, mass and lump, unspecified; R91.1 Solitary pulmonary nodule; M72.0 Palmar fascial fibromatosis [Dupuytren]; F17.210 Nicotine dependence, cigarettes, uncomplicated; Z79.52 Long term (current) use of systemic steroids
CPT/HCPCS: 99223-AI; 99232-AI; 99233-AI; 99239; C1751; J0696; J1170; J1450; J1650; J1720; J2405; J2543; J2704; J3010; J3370; J7030; J7050; J7512; Q9967

== ENCOUNTER 2020-04-04 06:59 | Outpatient (CLI) | payer MEDICAID ==
[~2020-04-04] VITALS: Ht 177.8 cm; Wt 82.6 kg
[2020-04-04] VITALS (9 sets, daily range): BP systolic 98–132; BP diastolic 78–94; PULSE 61–78; TEMP 98.4
[~2020-04-04 06:59] MED LIST changes: +LOPRESSOR 225 MG/TAB PO; +NORCO 325 MG-51 TAB PO; +PROVENTIL0.09 MG/A1 IH
[2020-04-04 08:08] LABS: HEMATOCRIT 42.9 % (42.0-52.0); HEMOGLOBIN 14.2 g/dl (13.5-18.0); MEAN CELL VOLUME 96 fl (80.0-100.0); MEAN CORPUSCULAR HEMOGLOBIN 32 pg (27.0-31.0); MEAN CORPUSCULAR HGB CONC 33 g/dl (33.0-37.0); MEAN PLATELET VOLUME 8.5 fl (7.4-10.4); PLATELET COUNT 446 K/mm3 (130-400); RED BLOOD COUNT 4.48 M/mm3 (4.20-5.60); REDCELL DISTRIBUTION WIDTH-CV 13.8 % (11.5-14.5)
[2020-04-04 08:15] LABS: PROTHROMBIN TIME 11.4 SECONDS (9.7-12.8)
[2020-04-04 08:25] LABS: CALCIUM 9.3 mg/dL (8.4-10.2); CREATININE, serum 0.85 (0.66-1.25); POTASSIUM 4.3 mmol/L (3.4-5.0)
[2020-04-04 08:48] LABS: PARTIAL THROMBOPLASTIN TIME 33.2 SECONDS (26.0-37.0)
[2020-04-04] MEDS ORDERED: LOPRESSOR 225 MG/TAB PO (09:27)
[2020-04-04] MEDS ORDERED: PLAVIX 75MG TAB75 MG PO (09:28)
[2020-04-04] MEDS ORDERED: PREDNISONE20 MG PO (09:29)
[2020-04-04] MEDS ORDERED: NITROSTAT0.4 MG/TAB SL (09:29)
--- NOTE | 2020-04-04 10:31 | NUR ---
SEE MERGE DOCUMENTATION FOR MEDICATION ADMINISTRATION AND INTRA/POST PROCEDURE SEDATION ASSESSMENTS.
--- NOTE | 2020-04-04 11:01 | NUR ---
Report from Rosana HERRMANN. Back from Pot Lining Supervisor by bed. Alert and oriented, denies pain and needs at this time. Right wrist Tband with 12 cc air, good pulses and cap refill < 3 secs noted. VSS.
--- NOTE | 2020-04-04 13:30 | NUR ---
Right Tband deflated of 12 cc air, pressure dressing applied. INT discontinued intact. Discharge instructions given.
--- NOTE | 2020-04-04 13:46 | NUR ---
Transferred to private car ambulated with cane and this nurse
== END 2020-04-04 13:47 | disposition home or self-care (01) ==
LOC: COL.RAD 06:59
PROVIDERS: Internal Medicine Cardiovascular Disease
DX: Z13.6 Encounter for screening for cardiovascular disorders (principal); I25.2 Old myocardial infarction
CPT/HCPCS: J1644; J2250; J3010; Q9967

== ENCOUNTER → 2021-10-01 | Outpatient (CLI) | payer MEDICARE, MEDICAID ==
[~2021-10-01] MED LIST changes: +NITROSTAT0.4 MG/TAB SL; +PLAVIX 75MG TAB75 MG PO; +PREDNISONE20 MG PO
== END ==
LOC: COL.VAS 11:23
DX: M79.662 Pain in left lower leg (principal); M79.661 Pain in right lower leg; Z98.890 Other specified postprocedural states